=== PATIENT | female | born 1930 | race African-American/Black ===

== ENCOUNTER 2017-08-19 04:00 | Emergency (ER) | payer MEDICARE ==
[~2017-08-19] VITALS: Ht 154.9 cm; Wt 65.0 kg
[2017-08-19 05:03] LABS: BASOPHILS % 1.2 % (0.0-2.0); EOSINOPHILS % 1.2 % (0.0-5.0); HEMATOCRIT. 40.2 % (36.0-48.0); HEMOGLOBIN. 13.3 g/dL (12.0-16.0); LYMPHOCYTES % 30.5 % (20.0-50.0); MEAN CORPUSCULAR VOLUME 87.7 fL (81.0-99.0); MEAN PLATELET VOLUME 7.2 fl (7.4-10.4); MONOCYTES % 10.8 % (2.0-8.0); NEUTROPHILS % 56.3 % (40.0-76.0); PLATELET 247 x1000/uL (130-400); RED BLOOD CELL COUNT 4.59 mill/uL (4.2-5.4)
[2017-08-19 05:17] LABS: CHLORIDE 99 mEq/L (98-107)
[2017-08-19 06:33] VITALS: BP 133/81
== END 2017-08-19 07:18 | disposition home or self-care (01) ==
LOC: ER 04:00
DX: J02.9 Acute pharyngitis, unspecified (principal); R09.89 Other specified symptoms and signs involving the circulatory and respiratory systems; I50.9 Heart failure, unspecified; I11.0 Hypertensive heart disease with heart failure; M19.90 Unspecified osteoarthritis, unspecified site; Z88.5 Allergy status to narcotic agent
CPT/HCPCS: 36415; 71045; 80053; 83880; 85025; 93005; 99285